=== PATIENT | female | born 1975 | race African-American/Black ===

== ENCOUNTER 2018-09-27 10:33 | Emergency (ER) | payer MEDICAID ==
[~2018-09-27] VITALS: Ht 165.1 cm; Wt 107.5 kg
[~2018-09-27 10:33] MED LIST: AZITHROMYCIN250 MG ORAL; CIPROFLOXACIN500 M2 ORAL; CORTISPORIN EAR10 ML BOTH EARS; DIOVAN160 MG ORAL; GUAIFENESIN-CO118 M1 ORAL; IBUPROFEN600 MG ORAL; IBUPROFEN600 MG PO; LACTULOSE20 GM/301 ORAL; LASIX20 M1 ORAL; METOPROLOL TART25 MG ORAL; NAPROXEN375 MG ORAL; NORCO 5-325 TA1 EACH ORAL; TRAMADOL HCL50 MG ORAL; VALIUM5 MG ORAL; ZANTAC150 MG ORAL; ZITHROMAX600 MG ORAL
[2018-09-27] MEDS ORDERED: DIOVAN80 MG ORAL (10:57)
[2018-09-27 11:00] VITALS: BP 146/82
--- NOTE | 2018-09-27 11:00 | NUR ---
ED Nurse Note: pt walked into ED c/o constipation, abdominal pain, cramping x 4 days, vomting (clear, yellow) once. Pt denies chills or nausea at this time. PT AA&xox4, gcs=15, skin warm and dry, resp even and unlabored, -n/v/d, ambulates w/ steady gait. will cont monitor. Last BM: hard stool; 09/26/2017
[2018-09-27] MEDS ORDERED: FLEET ENEMA133 ML RECTAL (11:42)
[2018-09-27] MEDS ORDERED: MAGNESIUM CITR296 M1 PO (11:42)
--- NOTE | 2018-09-27 11:47 | NUR ---
ED Nurse Note: pt discharge instruction provided w/ prescription, pt education done via discussion and handout, pt advised to follow up w/ pcp 2-3days, pt verbalized understanding and agrees with plan, pt wrist band removed, pt ambulatory w/ steady gait, vss, all belongings left w/ pt.
[2018-09-27 11:49] VITALS: BP 140/82
--- NOTE | 2018-09-28 13:50 | Emergency Room Report ---
History of Present Illness General Chief Complaint: Constipation Source: Patient Present Illness HPI Patient presents with reports that she has not had a bowel movement over the past several days she reports that ever since her Gallbladder removal several years ago she has had off-and-on problems with constipation Today's episode included a vomiting episode which has not happened on a usual basis which was concerning for her Denies any headache denies any fevers or chills She had some increased abdominal cramping as well Denies any dysuria frequency Patient has not taken any medications for this Allergies: Coded Allergies: CODEINE (Verified Allergy, Mild, 12/29/13) UNKNOWN METRONIDAZOLE (Verified Allergy, Mild, Shortness of Breath, 12/29/13) TINGLING OF BODY PENICILLINS (Verified Allergy, Mild, 12/29/13) UNKNOWN Patient History Past Medical History: see triage record Pertinent Family History: none Last Menstrual Period: 09/01/2018 Reviewed Nursing Documentation: PMH: Agreed; PSxH: Agreed Nursing Documentation-PMH Past Medical History: No History, Except For Hx Cardiac Problems: Yes - Blood clot left arm in 2010 Hx Hypertension: Yes Hx Pacemaker: No Hx Asthma: No Hx COPD: No Hx Diabetes: No Hx Cancer: No Hx Gastrointestinal Problems: Yes - GERD Hx Dialysis: No History Of Psychiatric Problem: No Hx Neurological Problems: No Hx Cerebrovascular Accident: No Hx Seizures: No Review of Systems All Other Systems: negative except mentioned in HPI Physical Exam Vital Signs Date Time Temp Pulse Resp B/P (MAP) Pulse Ox O2 Delivery O2 Flow Rate FiO2 09/27/18 10:51 98.6 65 16 146/82 98 Room Air Sp02 EP Interpretation: reviewed, normal General Appearance: well appearing, no apparent distress Head: normocephalic, atraumatic Eyes: bilateral eye PERRL, bilateral eye EOMI ENT: hearing grossly normal, normal pharynx, TMs + canals normal, uvula midline Neck: full range of motion, supple, no meningismus, no bony tend Respiratory: lungs clear, normal breath sounds, no rhonchi, no respiratory distress, no retraction, no accessory muscle use Cardiovascular #1: normal peripheral pulses, regular rate, rhythm, no edema, no gallop, no JVD, no murmur Gastrointestinal: normal bowel sounds, non tender, soft, no mass, no organomegaly, non-distended, no guarding, no hernia, no pulsatile mass, no rebound Genitourinary: no CVA tenderness Musculoskeletal: normal inspection Neurologic: oriented x3, responsive, demonstrator 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 gas appliances III-XII nml as tested, motor strength/ tone normal, sensory intact Psychiatric: mood/affect normal Skin: normal color, no rash, warm/dry, palpation normal Lymphatic: normal inspection, no adenopathy Medical Decision Making Diagnostic Impression: Primary Impression: abdominal pain Additional Impression: fecal retension ER Course Multiple differentials including but not limited to bowel obstruction, ileus are considered patient's abdomen is soft There is appropriate bowel sounds Patient feels that she has hard stools in the rectal area preventing her from having bowel movement Therefore I recommended attempting enema at home patient was also provided magnesium citrate I discussed with her at length regarding etiology and possibilities of bowel obstruction If any increased discomfort occurs or she has any other worrisome pathology over the next 1-2 days she will return more emergently however at this time will have initial conservative outpatient trial given the exam and evaluation Last Vital Signs Date Time Temp Pulse Resp B/P (MAP) Pulse Ox O2 Delivery O2 Flow Rate FiO2 09/27/18 11:49 98.2 68 16 140/82 98 Room Air Status: unchanged Disposition: HOME, SELF-CARE Condition: Stable Scripts Magnesium Citrate (MAGNESIUM CITRATE) 296 Ml Solution 150 ML PO BID, #2 ML Prov: Darío Donaldson DO 09/27/18 Na Phos,M-B/Na Phos,Di-Ba* (FLEET ENEMA*) 133 Ml Enema 133 ML RECTAL DAILY for 3 Days, ML 0 Refills Prov: Darío Donaldson DO 09/27/18 Referrals: NOT CHOSEN IPA/MD,REFERRING Patient Instructions: Abdominal Pain, Adult, [id number] Additional Instructions: Given the history and the exam from today's visit, it sounds that you have findings consistent with constipation and fecal retention. We will attempt initial outpatient care, if there is any worsening of the discomfort further vomiting or fevers please return to the ER more emergently as these may be signs of an intestinal obstruction Darío Donaldson DO Sep 28, 2018 13:50
== END 2018-09-27 11:47 | disposition home or self-care (01) ==
LOC: EMR 11:37
DX: R10.9 Unspecified abdominal pain (principal); K59.00 Constipation, unspecified; I10 Essential (primary) hypertension; K21.9 Gastro-esophageal reflux disease without esophagitis; Z88.0 Allergy status to penicillin; Z88.5 Allergy status to narcotic agent; Z88.1 Allergy status to other antibiotic agents
CPT/HCPCS: 99282

== ENCOUNTER 2018-12-23 13:43 | Emergency (ER) | payer MEDICAID ==
[~2018-12-23] VITALS: Ht 165.1 cm; Wt 107.5 kg
[~2018-12-23 13:43] MED LIST changes: +DIOVAN80 MG ORAL; +FLEET ENEMA133 ML RECTAL; +MAGNESIUM CITR296 M1 PO
[2018-12-23 13:49] VITALS: BP 155/80
--- NOTE | 2018-12-23 14:04 | Emergency Room Report ---
History of Present Illness General Chief Complaint: Earache Source: Patient Present Illness HPI 43-year-old female with no significant past medical history here complaining of 10 out of 10 right ear pain. Denies water exposure, fever, chills, congestion, cough, and other associated symptoms. Has history of otitis media and otitis externa. Complains of pain on the right side of the jaw however denies any pressure in her sinuses. Not taken medication for pain. denies SOB, chest pain , palpitation, dizziness, vertigo, hearing loss, and all other associated symptoms Allergies: Coded Allergies: CODEINE (Verified Allergy, Mild, 12/29/13) UNKNOWN METRONIDAZOLE (Verified Allergy, Mild, Shortness of Breath, 12/29/13) TINGLING OF BODY PENICILLINS (Verified Allergy, Mild, 12/29/13) UNKNOWN Patient History Past Medical History: see triage record Past Surgical History: none Pertinent Family History: none Now: No Immunizations: UTD Reviewed Nursing Documentation: PMH: Agreed; PSxH: Agreed Nursing Documentation-PMH Hx Cardiac Problems: Yes - Blood clot left arm in 2010 Hx Hypertension: Yes Hx Pacemaker: No Hx Asthma: No Hx COPD: No Hx Diabetes: No Hx Cancer: No Hx Gastrointestinal Problems: Yes - GERD Hx Dialysis: No Hx Neurological Problems: No Hx Cerebrovascular Accident: No Hx Seizures: No Review of Systems All Other Systems: negative except mentioned in HPI Physical Exam Vital Signs Date Time Temp Pulse Resp B/P (MAP) Pulse Ox O2 Delivery O2 Flow Rate FiO2 12/23/18 13:49 98.2 58 16 155/80 98 Room Air Sp02 EP Interpretation: reviewed, normal General Appearance: normal inspection, well appearing, no apparent distress, alert Head: normocephalic, atraumatic Eyes: bilateral eye normal inspection, bilateral eye PERRL ENT: hearing grossly normal, no angioedema, uvula midline, other - right TM buldging, tragus TTP Neck: normal inspection, full range of motion, supple Respiratory: normal inspection, chest non-tender, lungs clear, no respiratory distress Cardiovascular #1: normal inspection, regular rate, rhythm, no murmur Gastrointestinal: normal inspection, non tender, soft Rectal: deferred Musculoskeletal: normal inspection Neurologic: normal inspection, alert Psychiatric: normal inspection, judgement/insight normal Skin: normal inspection, normal color, no rash Lymphatic: normal inspection, no adenopathy Medical Decision Making PA Attestation all diagnosis and treatment plans were reviewed with my supervising physician Dr. Mcnally Diagnostic Impression: Primary Impression: Otitis media Additional Impression: Otitis externa ER Course 43-year-old female with no significant past medical history here complaining of 10 out of 10 right ear pain. Denies water exposure, fever, chills, congestion, cough, and other associated symptoms. Has history of otitis media and otitis externa. Complains of pain on the right side of the jaw however denies any pressure in her sinuses. Not taken medication for pain. denies SOB, chest pain , palpitation, dizziness, vertigo, hearing loss, and all other associated symptoms Ddx considered but are not limited to otitis media, otitis externa,choleastoma Vital signs: are WNL, pt. is afebrile H&PE are most consistent with otitis media otitis externa ORDERS: azithromycin, corticosporin otic, ibuprofen ED INTERVENTIONS: None required at this time. DISCHARGE: At this time pt. is stable for d/c to home. Will provide printed patient care instructions, and any necessary prescriptions. Care plan and follow up instructions have been discussed with the patient prior to discharge. follow Up with ear nose throat doctor Last Vital Signs Date Time Temp Pulse Resp B/P (MAP) Pulse Ox O2 Delivery O2 Flow Rate FiO2 12/23/18 13:49 98.2 58 16 155/80 98 Room Air Disposition: HOME, SELF-CARE Condition: Stable Scripts Neomycin/Polymyxin/Hydrocort (Glpkxegz-Dxnabczir-Ku Ear Soln) 10 Ml Solution 4 DROP OTIC TID for 7 Days, #10 ML Prov: Michelle Montana 12/23/18 Ibuprofen* (MOTRIN*) 600 Mg Tablet 600 MG ORAL Q8H PRN for For Pain, #30 TAB 0 Refills Prov: Michelle Montana 12/23/18 Azithromycin* (ZITHROMAX*) 250 Mg Tablet 250 MG ORAL DAILY, #6 TAB 0 Refills Take two tables once daily for 1 day, then one tablet once daily for 4 days. Prov: Michelle Montana 12/23/18 Patient Instructions: Otitis Media, Adult, Huxu-ih-Eoss, Otitis Externa, Easy- to-Read Additional Instructions: With a primary care provider for referral to ear nose throat doctor avoid water exposure Michelle Montana Dec 23, 2018 14:04
[2018-12-23] MEDS ORDERED: CORTISPORIN10 ML OTIC (14:09)
[2018-12-23] MEDS ORDERED: IBUPROFEN600 MG ORAL (14:09)
[2018-12-23] MEDS ORDERED: ZITHROMAX250 MG ORAL (14:09)
[2018-12-23 14:19] VITALS: BP 148/77
--- NOTE | 2018-12-23 14:19 | NUR ---
ER DISCHARGE NOTE: Pt was seen due to right earache. Patient is cleared to be discharged per PA, pt is aox4, on room air, with stable vital signs. pt was given dc and prescription instructions, pt was able to verbalize understanding, pt id band removed. pt is able to ambulate with steady gait. pt took all belongings.
== END 2018-12-23 14:19 | disposition home or self-care (01) ==
LOC: EMR 14:00
DX: H66.91 Otitis media, unspecified, right ear (principal); H60.91 Unspecified otitis externa, right ear; I10 Essential (primary) hypertension; K21.9 Gastro-esophageal reflux disease without esophagitis; Z88.5 Allergy status to narcotic agent; Z88.0 Allergy status to penicillin; Z88.1 Allergy status to other antibiotic agents
CPT/HCPCS: 99282

== ENCOUNTER 2020-06-06 14:35 | Emergency (ER) | payer MEDICAID, OTHER ==
[~2020-06-06] VITALS: Ht 165.1 cm; Wt 103.0 kg
[~2020-06-06 14:35] MED LIST changes: +ASPIR 8181 MG ORAL; +CORTISPORIN10 ML OTIC; +FUROSEMIDE20 M1 ORAL; +LIDODERM700 M1 TOPIC; +ROBAXIN-750750 MG PO; +TYLENOL EXTRA500 MG ORAL; +ZITHROMAX250 MG ORAL
[2020-06-06 15:06] VITALS: BP 162/82
[2020-06-06] MEDS ORDERED: Ketorolac 30mg Inj IV ONE (15:15)
[2020-06-06] MEDS ORDERED: Omnipaque-300 100ml vial INJ PRN (15:15)
[2020-06-06 15:29] LABS: APPEARANCE,URINE SLIGHTLY CLOUDY; BILIRUBIN, URINE NEGATIVE (NEGATIVE); GLUCOSE, URINE (UA) NEGATIVE (NEGATIVE); KETONES,URINE 2+ (NEGATIVE); LEUKOCYTE ESTERASE ,URINE 1+ (NEGATIVE); NITRITE,URINE NEGATIVE (NEGATIVE); PH,URINE 5 (4.5-8.0); PROTEIN,URINE 1+ (NEGATIVE); UROBILINOGEN,URINE NORMAL MG/DL (0.0-1.0)
[2020-06-06 15:33] LABS: ANION GAP 10 mmol/L (5-15); BLOOD UREA NITROGEN 11 mg/dL (7-18); CALCIUM 8.9 MG/DL (8.5-10.1); CARBON DIOXIDE 26 MMOL/L (21-32); CHLORIDE 102 MMOL/L (98-107); CREATININE 0.8 MG/DL (0.55-1.30); POTASSIUM 3.4 MMOL/L (3.5-5.1); SODIUM 138 MMOL/L (136-145)
[2020-06-06 15:36] LABS: COLOR,URINE YELLOW
[2020-06-06 15:36] LABS: ALANINE AMINOTRANSFERASE 21 U/L (12-78); ALBUMIN 3.8 G/DL (3.4-5.0); ALBUMIN/GLOBULIN RATIO 0.8 (1.0-2.7); ALKALINE PHOSPHATASE 66 U/L (46-116); ASPARTATE AMINO TRANSFERASE 17 U/L (15-37); BILIRUBIN,TOTAL 0.9 MG/DL (0.2-1.0)
[2020-06-06 15:45] LABS: BASOPHILS % (AUTO) 1.1 % (0.0-2.0); EOSINOPHILS % (AUTO) 1.4 % (0.0-3.0); HEMOGLOBIN 11.6 G/DL (12.0-16.0); LYMPHOCYTES % (AUTO) 34.2 % (20.0-45.0); MEAN CORPUSCULAR VOLUME 84 FL (80-99); MONOCYTES % (AUTO) 7.9 % (1.0-10.0); NEUTROPHILS % (AUTO) 55.4 % (45.0-75.0); PLATELET COUNT 264 K/UL (150-450); RED BLOOD COUNT 4.39 M/UL (4.20-5.40); RED CELL DISTRIBUTION WIDTH 15.3 % (11.6-14.8); WHITE BLOOD COUNT 8.1 K/UL (4.8-10.8)
[2020-06-06 16:32] VITALS: BP 154/79
--- NOTE | 2020-06-06 16:48 | Diagnostic Imaging Report ---
EXAM: CT Abdomen and Pelvis With Intravenous Contrast CLINICAL HISTORY: ABD PAIN TECHNIQUE: Axial computed tomography images of the abdomen and pelvis with intravenous contrast. CTDI is 15.90 mGy and DLP is 864.20 mGy-cm. One or more of the following dose reduction techniques were used: automated exposure control, adjustment of the mA and/or kV according to patient size, use of iterative reconstruction technique. COMPARISON: No relevant prior studies available. FINDINGS: Lung bases: Unremarkable. Mediastinum: Small hiatal hernia. ABDOMEN: Liver: Small low-attenuation foci in the liver. Gallbladder and bile ducts: Cholecystectomy. Pancreas: Unremarkable. Spleen: Unremarkable. Adrenals: Unremarkable. Kidneys and ureters: Unremarkable. No hydronephrosis. Stomach and bowel: Thickening and associated stranding related to a segment of the ascending colon, may be from colitis/diverticulitis. Colonic diverticula. PELVIS: Appendix: No findings to suggest acute appendicitis. Bladder: Unremarkable. Reproductive: Unremarkable. ABDOMEN and PELVIS: Intraperitoneal space: Unremarkable. Bones/joints: No acute fracture. Soft tissues: Unremarkable. Vasculature: Unremarkable. No abdominal aortic aneurysm. Lymph nodes: No enlarged lymph nodes. IMPRESSION: Thickening and associated stranding related to a segment of the ascending colon, may be from colitis/diverticulitis. Follow to ensure resolution and exclude other mimics.
[2020-06-06 16:51] VITALS: BP 145/82
[2020-06-06] MEDS ORDERED: METRONIDAZOLE500 MG ORAL (17:26)
[2020-06-06] MEDS ORDERED: IBUPROFEN600 M1 ORAL (17:26)
[2020-06-06] MEDS ORDERED: CIPROFLOXACIN500 M2 ORAL (17:26)
[2020-06-06] MEDS ORDERED: COLACE100 MG ORAL (17:26)
--- NOTE | 2020-06-06 20:28 | Emergency Room Report ---
History of Present Illness General Chief Complaint: Back Pain-No Injury Source: Patient Present Illness HPI 44-year-old female presents the ED complaining of right-sided abdominal pain for the last 2 days. Dull, 8 out of 10, radiating to the back. Denies fevers or chills. Denies nausea or vomiting. Denies dysuria or hematuria. States she has had her gallbladder removed. No other aggravating relieving factors. 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: No Patient History Past Medical History: HTN, GERD Past Surgical History: none Pertinent Family History: none Social History: Denies: smoking, alcohol use, drug use Last Menstrual Period: 05/23/20 Now: No : 6 Para: 3 Immunizations: UTD Reviewed Nursing Documentation: PMH: Agreed; PSxH: Agreed Nursing Documentation-PMH Past Medical History: No History, Except For Hx Cardiac Problems: No - GERD Hx Hypertension: Yes Hx Pacemaker: No Hx Asthma: No Hx COPD: No Hx Diabetes: No Hx Cancer: No Hx Gastrointestinal Problems: Yes - GERD Hx Dialysis: No Hx Neurological Problems: No Hx Cerebrovascular Accident: No Hx Seizures: No Review of Systems All Other Systems: negative except mentioned in HPI Physical Exam Vital Signs Date Time Temp Pulse Resp B/P (MAP) Pulse Ox O2 Delivery O2 Flow Rate FiO2 06/06/20 14:36 98.8 74 18 162/82 (108) 98 Room Air Sp02 EP Interpretation: reviewed, normal General Appearance: no apparent distress, alert, GCS 15, non-toxic, obese Head: normocephalic, atraumatic Eyes: bilateral eye normal inspection, bilateral eye PERRL ENT: hearing grossly normal, normal pharynx, no angioedema, normal voice Neck: full range of motion, supple/symm/no masses Respiratory: chest non-tender, lungs clear, normal breath sounds, speaking full sentences Cardiovascular #1: regular rate, rhythm, no edema Cardiovascular #2: 2+ carotid (R), 2+ carotid (L), 2+ radial (R), 2+ radial (L), 2+ dorsalis pedis (R), 2+ dorsalis pedis (L) Gastrointestinal: normal bowel sounds, soft, non-distended, no guarding, no rebound, tenderness - R side abdomen Rectal: deferred Genitourinary: normal inspection, no CVA tenderness Musculoskeletal: back normal, normal range of motion, gait/station normal, non- tender Neurologic: alert, motor strength/tone normal, oriented x3, sensory intact, responsive, speech normal Psychiatric: judgement/insight normal, memory normal, mood/affect normal, no suicidal/homicidal ideation Reflexes: 3+ bicep (R), 3+ bicep (L), 3+ tricep (R), 3+ tricep (L), 3+ knee (R), 3+ knee (L) Skin: no rash Lymphatic: no adenopathy Medical Decision Making Diagnostic Impression: Primary Impression: Diverticulitis ER Course Hospital Course 44 yo F presents to ED c/o R sided pain Differential diagnoses include: appendicitis, diverticulitis, SBO, gastroenteritis Clinical course 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 After initial history and phy sical I ordered labs, IV fluids, UA, pain medication and CT scan Labs - no leukocytosis, Hb/Hct stable. electrolytes ok. CT abdomen and pelvis - R sided diverticulitis I discussed findings with patient. Patient afebrile, nontoxic-appearing. Labs unremarkable. Will discharge home with antibiotics and stool softeners. Safe for discharge with close outpatient follow-up. States she has a PMD and a GI specialist I feel this is a highly complex case requiring extensive working including EKG/Rhythm strip, Xray/CT/US, Blood/urine lab work, repeat exams while in ED, and administration of strong opiates/narcotics for pain control, admission to hospital or close patient follow up. Diagnosis - divertculitis stable and discharged to home with prescription for Cipro and Flagyl, motrin, colace. Followup with PMD/GI. Return to ED if symptoms recur or worsen Laboratory Tests Test 06/06/20 14:55 06/06/20 15:00 Urine Color Yellow Urine Appearance Slightly cloudy Urine pH 5 (4.5-8.0) Urine Specific [place] 1.025 (1.005-1.035) Urine Protein 1+ (NEGATIVE) H Urine Glucose (UA) Negative (NEGATIVE) Urine Ketones 2+ (NEGATIVE) H Urine Blood 4+ (NEGATIVE) H Urine Nitrite Negative (NEGATIVE) Urine Bilirubin Negative (NEGATIVE) Urine Urobilinogen Normal MG/DL (0.0-1.0) Urine Leukocyte Esterase 1+ (NEGATIVE) H Urine RBC 10-15 /HPF (0 - 2) H Urine WBC 2-4 /HPF (0 - 2) Urine Squamous Epithelial Cells Many /LPF (NONE/OCC) H Urine Bacteria Few /HPF (NONE) Urine HCG, Qualitative Negative (NEGATIVE) White Blood Count 8.1 K/UL (4.8-10.8) Red Blood Count 4.39 M/UL (4.20-5.40) Hemoglobin 11.6 G/DL (12.0-16.0) L Hematocrit 37.0 % (37.0-47.0) Mean Corpuscular Volume 84 FL (80-99) Mean Corpuscular Hemoglobin 26.5 PG (27.0-31.0) L Mean Corpuscular Hemoglobin Concent 31.4 G/DL (32.0-36.0) L Red Cell Distribution Width 15.3 % (11.6-14.8) H Platelet Count 264 K/UL (150-450) Mean Platelet Volume 6.9 FL (6.5-10.1) Neutrophils (%) (Auto) 55.4 % (45.0-75.0) Lymphocytes (%) (Auto) 34.2 % (20.0-45.0) Monocytes (%) (Auto) 7.9 % (1.0-10.0) Eosinophils (%) (Auto) 1.4 % (0.0-3.0) Basophils (%) (Auto) 1.1 % (0.0-2.0) Sodium Level 138 MMOL/L (136-145) Potassium Level 3.4 MMOL/L (3.5-5.1) L Chloride Level 102 MMOL/L (98-107) Carbon Dioxide Level 26 MMOL/L (21-32) Anion Gap 10 mmol/L (5-15) Blood Urea Nitrogen 11 mg/dL (7-18) Creatinine 0.8 MG/DL (0.55-1.30) Estimat Glomerular Filtration Rate > 60 mL/min (>60) Glucose Level 85 MG/DL (74-106) Calcium Level 8.9 MG/DL (8.5-10.1) Total Bilirubin 0.9 MG/DL (0.2-1.0) Aspartate Amino Transf (AST/SGOT) 17 U/L (15-37) Alanine Aminotransferase (ALT/SGPT) 21 U/L (12-78) Alkaline Phosphatase 66 U/L (46-116) Total Protein 8.5 G/DL (6.4-8.2) H Albumin 3.8 G/DL (3.4-5.0) Globulin 4.7 g/dL Albumin/Globulin Ratio 0.8 (1.0-2.7) L Lipase 73 U/L (73-393) CT/MRI/US Diagnostic Results CT/MRI/US Diagnostic Results : Imaging Test Ordered: CT A/P Impression Procedure: CT Abdomen Pelvis w/Contrast EXAM: CT Abdomen and Pelvis With Intravenous Contrast CLINICAL HISTORY: ABD PAIN TECHNIQUE: Axial computed tomography images of the abdomen and pelvis with intravenous contrast. CTDI is 15.90 mGy and DLP is 864.20 mGy-cm. One or more of the following dose reduction techniques were used: automated exposure control, adjustment of the mA and/or kV according to patient size, use of iterative reconstruction technique. COMPARISON: No relevant prior studies available. FINDINGS: Lung bases: Unremarkable. Mediastinum: Small hiatal hernia. ABDOMEN: Liver: Small low-attenuation foci in the liver. Gallbladder and bile ducts: Cholecystectomy. Pancreas: Unremarkable. Spleen: Unremarkable. Adrenals: Unremarkable. Kidneys and ureters: Unremarkable. No hydronephrosis. Stomach and bowel: Thickening and associated stranding related to a segment of the ascending colon, may be from colitis/diverticulitis. Colonic diverticula. PELVIS: Appendix: No findings to suggest acute appendicitis. Bladder: Unremarkable. Reproductive: Unremarkable. ABDOMEN and PELVIS: Intraperitoneal space: Unremarkable. Bones/joints: No acute fracture. Soft tissues: Unremarkable. Vasculature: Unremarkable. No abdominal aortic aneurysm. Lymph nodes: No enlarged lymph nodes. IMPRESSION: Thickening and associated stranding related to a segment of the ascending colon, may be from colitis/diverticulitis. Follow to ensure resolution and exclude other mimics. Last Vital Signs Date Time Temp Pulse Resp B/P (MAP) Pulse Ox O2 Delivery O2 Flow Rate FiO2 06/06/20 16:51 98.5 79 15 145/82 98 Room Air Status: improved Disposition: HOME, SELF-CARE Condition: Stable Scripts Metronidazole* (FLAGYL*) 500 Mg Tablet 500 MG ORAL THREE TIMES A DAY, #21 TAB Prov: Miguel Argueta MD 06/06/20 Ciprofloxacin Hcl* (CIPROFLOXACIN HCL*) 500 Mg Tablet 500 MG ORAL Q12H, #14 TAB 0 Refills Prov: Miguel Argueta MD 06/06/20 Docusate Sodium* (COLACE*) 100 Mg Capsule 100 MG ORAL THREE TIMES A DAY, #30 CAP Prov: Miguel Argueta MD 06/06/20 Ibuprofen* (MOTRIN*) 600 Mg Tablet 600 MG ORAL Q8H PRN for FOR PAIN, #30 TAB 0 Refills Prov: Miguel Argueta MD 06/06/20 Referrals: NON PHYSICIAN (PCP) Willie Yeung [facility] Patient Instructions: Diverticulitis, [id number] Miguel Argueta MD Jun 06, 2020 20:28
[2020-06-07] MEDS ORDERED: CIPROFLOXACIN500 M2 ORAL (14:01)
[2020-06-07] MEDS ORDERED: METRONIDAZOLE500 MG ORAL (14:01)
[2020-06-07] MEDS ORDERED: COLACE100 MG ORAL (14:01)
[2020-06-07] MEDS ORDERED: IBUPROFEN600 M1 ORAL (14:02)
== END 2020-06-06 16:50 | disposition home or self-care (01) ==
LOC: EMR 15:10
DX: K57.92 Diverticulitis of intestine, part unspecified, without perforation or abscess without bleeding (principal); I10 Essential (primary) hypertension; K44.9 Diaphragmatic hernia without obstruction or gangrene; Z88.6 Allergy status to analgesic agent; Z88.0 Allergy status to penicillin; K21.9 Gastro-esophageal reflux disease without esophagitis; E66.9 Obesity, unspecified; Z90.49 Acquired absence of other specified parts of digestive tract
CPT/HCPCS: 36415; 74177; 80053; 81003; 81025; 83690; 85025; 96374; Q9965; Z7502; 99284